=== PATIENT | female | born 1980 | race Caucasian/White ===

== ENCOUNTER 2022-03-19 09:15 | Observation (INO) | payer BC ==
--- NOTE | 2022-03-19 09:36 | ED ---
General Adult HPI - General Chief complaint: Neuro Symptoms/Deficit Stated complaint: facial numbness Time Seen by Provider: 03/19/22 09:22 Source: patient, EMS, RN notes reviewed Mode of arrival: EMS Limitations: no limitations - History of Present Illness Initial comments: Patient is a pleasant 41-year-old female presenting to the emergency department with concern for facial weakness. Patient deniedany symptoms when she woke. Around 8:00 her face felt funny. Patient looked in the mere and noticed drooping on the right side. Patient also has had paresthesias on the right side. Facial weakness has resolved. Patient believes it lasted around 45 minutes. No headache. Patient feels she may be slightly confused or fuzzy. No extremity weakness. No extremity paresthesia. Patient did have some odd symptoms after her covid injection however was told at that time which was back in October that it was just a reaction to the vaccination. - Related Data Allergies Allergy/AdvReac Type Severity Reaction Status Date / Time cephalexin [From Keflex] Allergy Nausea Verified 03/19/22 09:33 Review of Systems ROS Statement: Those systems with pertinent positive or pertinent negative responses have been documented in the HPI. ROS Other: All systems not noted in ROS Statement are negative. Constitutional: Denies: fever Eyes: Denies: eye pain ENT: Denies: ear pain Respiratory: Denies: cough Cardiovascular: Denies: chest pain Endocrine: Denies: fatigue Gastrointestinal: Denies: abdominal pain, vomiting Genitourinary: Denies: dysuria Musculoskeletal: Denies: back pain Skin: Denies: rash Neurological: Reports: as per HPI, weakness, paresthesias, confusion. Denies: headache, vertigo Past Medical History Past Medical History: Hypertension History of Any Multi-Drug Resistant Organisms: None Reported Past Surgical History: Hysterectomy Additional Past Surgical History / Comment(s): Breast reduction, colon resection, corneal transplant Past Psychological History: Anxiety, Depression Smoking Status: Former smoker Past Alcohol Use History: Occasional Past Drug Use History: None Reported General Exam Limitations: no limitations General appearance: alert, in no apparent distress Head exam: Present: normocephalic Eye exam: Present: normal appearance, PERRL, EOMI ENT exam: Present: normal oropharynx Neck exam: Present: normal inspection Respiratory exam: Present: normal lung sounds bilaterally Cardiovascular Exam: Present: regular rate, normal rhythm GI/Abdominal exam: Present: soft. Absent: tenderness Extremities exam: Present: normal inspection. Absent: pedal edema, calf tenderness Neurological exam: Present: alert, oriented X3, CN II-XII intact (Except patient states decreased sensation right side of face) Expanded Neurological exam: Present: protecting the airway Speech: Present: fluid speech Cranial nerves: EOM's Intact: Normal, Facial Sensation: Abnormal Right Sensory exam: Upper Extremity Light Touch: Normal, Lower Extremity Light Touch: Normal Motor strength exam: RUE: 5, LUE: 5, RLE: 5, LLE: 5 Eye Response: (4) open spontaneously Motor Response: (6) obeys commands Verbal Response: (5) oriented Psychiatric exam: Present: normal affect, normal mood Skin exam: Present: normal color Course Vital Signs 03/19/22 03/19/22 03/19/22 09:23 09:45 10:00 Temperature 97.1 F L Pulse Rate 63 58 L 62 Respiratory 18 18 18 Rate Blood Pressure 129/70 138/70 133/63 O2 Sat by Pulse 99 98 100 Oximetry 03/19/22 10:15 Temperature Pulse Rate 67 Respiratory 18 Rate Blood Pressure 135/76 O2 Sat by Pulse 99 Oximetry - Reevaluation(s) Reevaluation #1: 03/19/22 09:36 Patient felt to be not a candidate for TPA secondary to 1: Improving symptoms, 2: Low NIH. Risks are felt to outweigh any potential benefits. Code stroke was called. 03/19/22 10:02 Case was discussed earlier with Dr. Yusuf who agrees patient is not a TPA candidate. EKG Findings - EKG Comments: EKG Findings:: Sinus bradycardia 55. NM 171. QRS 100. QT 422. QTC 412. Normal axis. Low QRS voltage. No acute ST change. Medical Decision Making - Medical Decision Making Patient reevaluated and resting comfortably in bed. Symptoms unchanged. Patient updated on results and plan. Case discussed with Dr. Castanon, who will admit covering hospital call. - Lab Data Result diagrams: 03/19/22 09:36 03/19/22 09:36 Lab Results 03/19/22 03/19/22 03/19/22 Range/Units 09:36 09:36 09:36 WBC 8.0 (3.8-10.6) k/uL RBC 4.69 (3.80-5.40) m/uL Hgb 12.0 (11.4-16.0) gm/dL Hct 37.3 (34.0-46.0) % MCV 79.6 L (80.0-100.0) fL MCH 25.7 (25.0-35.0) pg MCHC 32.2 (31.0-37.0) g/dL RDW 15.8 H (11.5-15.5) % Plt Count 484 H (150-450) k/uL MPV 6.6 Neutrophils % 63 % Lymphocytes % 26 % Monocytes % 5 % Eosinophils % 3 % Basophils % 0 % Neutrophils # 5.0 (1.3-7.7) k/uL Lymphocytes # 2.1 (1.0-4.8) k/uL Monocytes # 0.4 (0-1.0) k/uL Eosinophils # 0.3 (0-0.7) k/uL Basophils # 0.0 (0-0.2) k/uL Hypochromasia Slight PT 10.4 (9.0-12.0) sec INR 1.0 (<1.2) APTT 27.8 (22.0-30.0) sec Sodium 141 (137-145) mmol/L Potassium 3.4 L (3.5-5.1) mmol/L Chloride 103 (98-107) mmol/L Carbon Dioxide 28 (22-30) mmol/L Anion Gap 10 mmol/L BUN 10 (7-17) mg/dL Creatinine 0.65 (0.52-1.04) mg/dL Est GFR (CKD-EPI)AfAm >90 (>60 ml/min/1.73 sqM) Est GFR (CKD-EPI)NonAf >90 (>60 ml/min/1.73 sqM) Glucose 96 (74-99) mg/dL POC Glucose (mg/dL) (75-99) mg/dL POC Glu Paint And Table Edger ID Calcium 9.0 (8.4-10.2) mg/dL Total Bilirubin 0.5 (0.2-1.3) mg/dL AST 19 (14-36) U/L ALT 17 (4-34) U/L Alkaline Phosphatase 94 (38-126) U/L Troponin I (0.000-0.034) ng/mL Total Protein 7.6 (6.3-8.2) g/dL Albumin 3.9 (3.5-5.0) g/dL 03/19/22 03/19/22 Range/Units 09:36 09:36 WBC (3.8-10.6) k/uL RBC (3.80-5.40) m/uL Hgb (11.4-16.0) gm/dL Hct (34.0-46.0) % MCV (80.0-100.0) fL MCH (25.0-35.0) pg MCHC (31.0-37.0) g/dL RDW (11.5-15.5) % Plt Count (150-450) k/uL MPV Neutrophils % % Lymphocytes % % Monocytes % % Eosinophils % % Basophils % % Neutrophils # (1.3-7.7) k/uL Lymphocytes # (1.0-4.8) k/uL Monocytes # (0-1.0) k/uL Eosinophils # (0-0.7) k/uL Basophils # (0-0.2) k/uL Hypochromasia PT (9.0-12.0) sec INR (<1.2) APTT (22.0-30.0) sec Sodium (137-145) mmol/L Potassium (3.5-5.1) mmol/L Chloride (98-107) mmol/L Carbon Dioxide (22-30) mmol/L Anion Gap mmol/L BUN (7-17) mg/dL Creatinine (0.52-1.04) mg/dL Est GFR (CKD-EPI)AfAm (>60 ml/min/1.73 sqM) Est GFR (CKD-EPI)NonAf (>60 ml/min/1.73 sqM) Glucose (74-99) mg/dL POC Glucose (mg/dL) 87 (75-99) mg/dL POC Glu Paint And Table Edger ID Perry Lazo Calcium (8.4-10.2) mg/dL Total Bilirubin (0.2-1.3) mg/dL AST (14-36) U/L ALT (4-34) U/L Alkaline Phosphatase (38-126) U/L Troponin I <0.012 (0.000-0.034) ng/mL Total Protein (6.3-8.2) g/dL Albumin (3.5-5.0) g/dL - Radiology Data Radiology results: report reviewed (Computed tomography scan of the brain shows no acute process. Brain volume loss changes more than expected for patient's age. CT angios shows no significant abnormality. Incidental findings.), image reviewed (Two-view chest x-ray shows no acute process.) Disposition Clinical Impression: Cerebrovascular accident (CVA) Disposition: ADMITTED IP TO THIS HOSP Is patient prescribed a controlled substance at d/c from ED?: No Referrals: Nonstaff,Physician [Primary Care Provider] - 1-2 days Decision Time: 10:56
[2022-03-19 09:46] LABS: Glucose,Whole Blood 87 mg/dL (75-99)
[2022-03-19 09:50] LABS: Basophils % (A) 0 %; Eosinophils # (A) 0.3 k/uL (0-0.7); Eosinophils % (A) 3 %; HCT 37.3 % (34.0-46.0); Hypochromasia Slight; Lymphocytes # (A) 2.1 k/uL (1.0-4.8); Lymphocytes % (A) 26 %; MCH 25.7 pg (25.0-35.0); MCHC 32.2 g/dL (31.0-37.0); MCV 79.6 fL (80.0-100.0); Mean Platelet Volume 6.6; Monocytes # (A) 0.4 k/uL (0-1.0); Monocytes % (A) 5 %; Neutrophils % (A) 63 %; Platelet Count 484 k/uL (150-450); RBC 4.69 m/uL (3.80-5.40); RDW 15.8 % (11.5-15.5)
[2022-03-19 10:00] LABS: Partial Thromboplastin Time 27.8 sec (22.0-30.0); Prothrombin Time 10.4 sec (9.0-12.0)
--- NOTE | 2022-03-19 10:03 | CT ---
EXAMINATION TYPE: CT brain wo con for TPA DATE OF EXAM: 03/19/2022 COMPARISON: None available HISTORY: Neuro [id number] CT DLP: 1085.8 mGycm Automated exposure control for dose reduction was used. TECHNIQUE: CT scan of the brain is performed without IV contrast administration. FINDINGS: Ballooning of the sella turcica. Brain volume loss changes mainly involving the frontal lobes, more t maldonado expected for the patient's age. No acute intracranial hemorrhage. No gross acute cortical infarct . No midline shift, herniation or ventriculomegaly. Unremarkable basal cisterns and CP angles. No gross space-occupying lesion, vasogenic edema or mass effect. Unremarkable orbits. Clear visualized paranasal sinuses and mastoid air cells. Unremarkable calvarial bones. IMPRESSION: No acute intracranial hemorrhage or gross acute cortical infarct. No gross space-occupying lesion by this nonenhanced CT scan. Brain volume loss changes more than expected for the patient's age as described above. Further MRI as sessment can be considered if clinically required.
[2022-03-19 10:04] LABS: ALT 17 U/L (4-34); AST 19 U/L (14-36); African American GFR (CKD) >90 (>60 ml/min/1.73 sqM); Albumin 3.9 g/dL (3.5-5.0); Alkaline Phosphatase 94 U/L (38-126); Anion Gap 10 mmol/L; Blood Urea Nitrogen 10 mg/dL (7-17); Carbon Dioxide 28 mmol/L (22-30); Chloride 103 mmol/L (98-107); Glucose 96 mg/dL (74-99); Non-African American GFR(CKD) >90 (>60 ml/min/1.73 sqM); Potassium 3.4 mmol/L (3.5-5.1); Sodium 141 mmol/L (137-145); Total Bilirubin 0.5 mg/dL (0.2-1.3); Total Protein 7.6 g/dL (6.3-8.2)
--- NOTE | 2022-03-19 10:31 | XR ---
EXAMINATION TYPE: XR chest 2V DATE OF EXAM: 03/19/2022 COMPARISON: NONE HISTORY: Chest pain TECHNIQUE: Frontal and lateral views of the chest are obtained. FINDINGS: There is no focal air space opacity. No evidence for pneumothorax. No pleural effusion. The cardiac silhouette size is within normal limits. The osseous structures are grossly intact. IMPRESSION: 1. No acute cardiopulmonary process.
--- NOTE | 2022-03-19 10:40 | CT ---
EXAMINATION TYPE: CT angio head neck DATE OF EXAM: 03/19/2022 HISTORY: Right sided facial droop and headache. COMPARISON: Nonenhanced CT brain performed earlier same day CT DLP: 786 mGycm. Automated Exposure Control for Dose Reduction was Utilized. TECHNIQUE: CTA scan of the neck is performed with IV Contrast, patient injected with 65 mL of Isovue 370, axial images are obtained, coronal and sagittal reformatted images are reviewed. 3D reconstruct ed images are created on an independent workstation and reviewed. FINDINGS: Carotid/Vascular Structures: Normal caliber and enhancement of the neck arteries and intracranial art eries without significant stenosis, occlusion, dissection, aneurysm or AV malformation. Patent major intracranial venous sinuses. Other: No intracranial abnormal enhancement. Slightly prominent nasopharyngeal soft tissue, please co rrelate clinically. Degenerative changes at C4-5 and C5-6 levels. IMPRESSION: No significant neck or intracranial arterial abnormality identified. Incidental findings as described above.
[2022-03-19] MEDS ORDERED: METOCLOPRAMIDE 5 MG/ML 2 ML VIAL IVP STA (10:57)
[2022-03-19] MEDS ORDERED: ASPIRIN 325 MG TAB PO STA (10:57)
[2022-03-19] MEDS: SODIUM CHLORIDE 0.9% 1,000 ML IV SCH ×2 (11:27→22:03)
[2022-03-19] MEDS ORDERED: ALBUTEROL NEBULIZED 2.5 MG/3 ML INHALATION PRN (12:25)
--- NOTE | 2022-03-19 13:38 | P.CNNES ---
History of Present Illness Consult date: 03/19/22 Requesting physician: Maximo Lopez Reason for Consult: CVA History of Present Illness: Patient is a 41-year-old right-handed female came to the hospital by ambulance this morning at 9:15 AM, for evaluation of right-sided facial brachial numbness and tingling. Patient states that she woke up at 7:15 AM and was feeling fine. At 8 AM she went with her friend to work, when while in the car she felt her face felt funny, her mouth was drooping on the right side. Shortly after she noticed numbness and tingling of the right cheek that extended to rest of the face on the right side, shoulder to the right arm. The symptoms mostly lasted for 1-1-1/2 hours. As per EMS flow sheet when they arrived, found patient in her workplace, stated that her right side of her face felt numb. This started on her way to work. She noticed some facial droop right side when looking in the mirror. She also stated that she just does not feel right. Staff took her blood pressure was 161/93. When the EMS examined, she has symmetrical facial expressions, equal upper and lower extremities. She mentioned that her face still felt numb and was having a hard time coming up with words and feels weird, something is not right. Patient has mentioned that she has periodic headaches and new onset hypertension for which she is started on lisinopril. She had taken her medication in the morning prior to going to work. EKG showed normal sinus rhythm. Blood pressure when checked by EMS was 150/86, pulse rate 80, respiration 14 saturation 100%. Patient was evaluated in the ER. She was considered not a candidate for TPA because of low NIH stroke scale and improving symptoms. Stroke code was initiated in the ED staff discuss case with Dr. Inman and she was not a candidate for TPA. Computed tomography scan of head showed no acute process. There is increased amount of cerebral atrophy as compared to patient's age. On my personal review on the computed tomography scan, there is evidence of subdural hygromas bilaterally mainly involving the frontal and superior head region. CTA of head and neck is normal. chest x-ray is normal. EKG with normal sinus rhythm, sinus bradycardia. Patient at home takes aspirin 81 mg daily, lisinopril and Cymbalta 60 mg daily. she has been on baby aspirin for over 10 years, as she has positive MTHFR. Patient has history of hypertension since December 2021. She has smoked half pac k per day off and on for 15 years, quit in December 23 2 after she suffered from Covid. Patient states that since her Covid, she feels confused at times. This morning when EMS arrived, she could not recall name of her PCP. patient denies any recent or remote history of head injury. Patient still feels some tingling of the right facial region and droopiness feeling of the right lip, although it is actually normal. Denies any history of migraines. Patient says that her mother of PE at age 58. Patient drinks alcohol occasionally. Review of Systems All 14 point of review systems reviewed are unremarkable except as mentioned above in the HPI. Past Medical History Past Medical History: Asthma, Blood Disorder, Eye Disorder, GERD/Reflux, Hypertension, Pneumonia Additional Past Medical History / Comment(s): MTHFR blood disorder, covid pneumonia 12/2021 hospitalized at [facility], bradycardia, colon rupture/surgery, keratconus, History of Any Multi-Drug Resistant Organisms: None Reported Past Surgical History: Bowel Resection, Breast Surgery, Hysterectomy Additional Past Surgical History / Comment(s): Breast reduction, colon resection, R eye corneal transplant Past Anesthesia/Blood Transfusion Reactions: Postoperative Nausea & Vomiting (PONV) Additional Past Anesthesia/Blood Transfusion Reaction / Comment(s): "I was told my heart stopped during surgery once." Past Psychological History: Anxiety, Depression Additional Psychological History / Comment(s): Pt resides with her father. 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. She is independent. Smoking Status: Former smoker Past Alcohol Use History: Occasional Additional Past Alcohol Use History / Comment(s): Pt started smoking in 2001 and was an on and off smoker then quit smoking cigarettes completely December 2021 but will occasionally take a couple puffs off an E cigarette. Past Drug Use History: None Reported - Past Family History Father Family Medical History: Diabetes Mellitus, Hypertension Additional Family Medical History / Comment(s): Father is alive Mother Family Medical History: Pulmonary Embolus Additional Family Medical History / Comment(s): Mother of a PE Medications and Allergies Home Medications Medication Instructions Recorded Confirmed Type Albuterol Sulfate [Proair Hfa] 2 puff INHALATION RT-Q4H PRN 03/19/22 03/19/22 History Aspirin EC [Ecotrin Low Dose] 81 mg PO DAILY 03/19/22 03/19/22 History DULoxetine HCL [Cymbalta] 60 mg PO DAILY 03/19/22 03/19/22 History Omeprazole 40 mg PO DAILY 03/19/22 03/19/22 History lisinopriL [Zestril] 20 mg PO DAILY 03/19/22 03/19/22 History Allergies Allergy/AdvReac Type Severity Reaction Status Date / Time cephalexin [From Keflex] AdvReac Nausea Verified 03/19/22 11:04 Physical Examination - Vital Signs Vital Signs: Vital Signs Temp Pulse Resp BP Pulse Ox 03/19/22 10:15 67 18 135/76 99 03/19/22 10:00 62 18 133/63 100 03/19/22 09:45 58 L 18 138/70 98 03/19/22 09:23 97.1 F L 63 18 129/70 99 Intake and Output 03/18/22 03/19/22 03/19/22 22:59 06:59 14:59 Other: Weight 136.078 kg Patient is a young female, in no acute distress. Patient is alert awake oriented to time place and person. Speech and language functions are normal. Attention, concentration and fund of knowledge is adequat e. There is no aphasia or dysarthria. On cranial examination, pupils are equal, round and reacting to light, visual nobles are full on confrontation, with no neglect on double simultaneous stimulation. Her extraocular muscles are intact with no nystagmus. Face is symmetric, tongue protrudes to the midline. Palatal elevation and sensation normal, hearing and shoulder shrug normal, facial sensation normal. Shoulder shrug normal. On muscle strength testing, there is no pronator drift and the strength is normal in arms and legs distally and proximally. Deep tendon reflexes are symmetric, 2+ all over and plantar equivocal on the right, probably down on the left. Sensory to touch is equal with no neglect. Cerebellar function showed no ataxia for [id number] testing. No dysdiadochokinesia. Tone and bulk of muscles normal. Gait deferred. On general examination, there is no carotid bruit or murmur, S1-S2 audible. Abdomen is soft nontender. Bowel sounds present, no organomegaly. Chest is clear. Peripheral pulses are present. No edema. Results - Laboratory Findings CBC and BMP: 03/19/22 09:36 03/19/22 09:36 Abnormal Lab Findings: Abnormal Labs 03/19/22 03/19/22 09:36 09:36 MCV 79.6 L RDW 15.8 H Plt Count 484 H Potassium 3.4 L Assessment and Plan Assessment: * Probable TIA manifesting with transient right facial and brachial numbness and tingling. Symptoms mostly lasted for 1-1/2 hours, but she still feels some paresthesias over the right facial region. Rule out CVA. * Abnormal CT head, with evidence of subdural hygromas bilaterally, unclear cause. No history of head trauma. * Reported history of positive MTHFR * Hypertension * Obesity Plan: * We will check MRI of the brain with and without contrast to evaluate for CVA, rule out subdural hematoma. * 2-D echo with bubble study to rule out PFO. * Fasting a.m. lipid panel, hemoglobin A1c * Continue aspirin for now. * Telemetry monitoring. * Neurology will follow. Thank you for the consult.
[2022-03-19] MEDS: ACETAMINOPHEN TAB 500 MG TAB PO PRN ×2 (16:00→21:28)
--- NOTE | 2022-03-19 18:39 | MR ---
EXAMINATION TYPE: MR brain wo/w con DATE OF EXAM: 03/19/2022 COMPARISON: CT brain 03/19/2022 HISTORY: 14 ml TECHNIQUE: Multiplanar, multisequence images of the brain and brainstem is performed without and with IV contras t, utilizing Subdural hygroma, possible TIA, rule out SDH mL intravenous Gadavist . FINDINGS: Diffusion weighted images demonstrate no evidence of a recent infarct or other diffusion ab normality. There is no change in extra-axial fluid collection collection is or significant white mat ter signal abnormality, there is a focus of hyperintensity in the right frontal lobe on axial image 2 4 within the subcortical white matter measuring 6 to 7 mm on T2 and inversion recovery sequences. Th e ventricular system and cisternal spaces are normal in size and appearance. The brain volume is sta ble, greater than expected for patient's age. Midline structures demonstrate partially empty sella as on prior, cerebellar tonsils are in close pro ximity to the foramen magnum verge. The craniocervical junction appears within normal limits. Post contrast images demonstrate no abnormal enhancement. The dural venous sinuses appear patent. The visu alized sinuses are clear and the globes are intact. IMPRESSION: No acute abnormality. Nonspecific cortical volume loss, focus of hyperintensity within th e subcortical white matter. Additional findings above.
--- NOTE | 2022-03-19 18:59 | HP ---
HISTORY AND PHYSICAL This 41-year-old white female came to the hospital with right-sided facial weakness and right arm weakness. These symptoms occurred when she was driving to work. She did not have them any time in the past. She has never had these before. Past medical history . She takes aspirin at home and hypertension medicine. She has no idea what her blood pressure has been running at home. She gained 30 pounds since she had COVID 3 months ago. She has been chronically dizzy, short of breath with exercise. ALLERGIES TO KEFLEX. Fourteen-point review of systems otherwise negative. No right leg weakness at all or numbness. Otherwise negative. Some mild confusion, weakness, paresthesias. No headache or vertigo in the past. Past medical history is hypertension and weight gain, COVID 3 months ago. Surgeries are hysterectomy, breast reduction, colon resection, corneal transplant, anxiety, depression. Smokes one pack a day. No alcohol. On physical examination, vital signs were reviewed. Cardiovascular S1, S2. No murmurs. Lungs clear. GI distended. Endocrine: BMI is over 40. Psych: Giving appropriate answers. No facial droop seen on cranial nerve exam. Appears to be intact with some mild decreased sensation in the face on the right side. Fluent speech. No slurred speech. Extremities . She is alert and oriented x3. Fair mood and affect. Normal skin color. Blood pressure is 120s to 130s over 60s to 70s, temperature 97.1, pulse 60s, respiratory rate 16 to 18, O2 98 to 100. Neurology saw her, did not order tPA due to her symptoms were improved, low NIH. She is ordered for an MRI of the brain after CTA was negative and CT of the brain essentially questionable for some hygromas according to Neurology. Her potassium is little bit low at 3.4. White count is 8, hemoglobin is 12. BUN is 10, creatinine is 0.65. Condition stable. Prognosis guarded. ASSESSMENT: Probable cerebrovascular accident versus transient ischemic attack, which is improved. We are waiting for MRI of the brain and further neurologic workup. MMODL / IJN: [id number] /
[2022-03-19] MEDS: LORazepam 2 MG/ML INJ IV PRN (22:02)
[2022-03-20 03:00] LABS: % Iron Saturation 11.49 (12.00-45.00)
[2022-03-20] MEDS: SODIUM CHLORIDE 0.9% 1,000 ML IV SCH ×2 (06:34→19:01)
[2022-03-20] MEDS: PANTOPRAZOLE 40 MG TABLET PO SCH (06:34)
[2022-03-20] MEDS: ASPIRIN 81 MG PO SCH (08:54)
[2022-03-20] MEDS: lisinopriL 20 MG TAB PO SCH (08:54)
[2022-03-20] MEDS: DULoxetine HCL 60 MG CAPSULE.DR PO SCH (08:54)
[2022-03-20] MEDS ORDERED: ASPIRIN 325 MG TAB PO SCH (09:00)
[2022-03-20 09:23] LABS: LDL Cholesterol,Calculated 107.4 mg/dL (0.0-131.0)
[2022-03-20] MEDS: LORazepam 2 MG/ML INJ IV PRN ×2 (10:13→20:01)
[2022-03-20] MEDS: ACETAMINOPHEN TAB 500 MG TAB PO PRN (10:17)
[2022-03-20] MEDS: BUTALB/APAP/CAFF 50-325-40MG TAB PO PRN (12:16)
--- NOTE | 2022-03-20 12:18 | P.PN ---
Subjective Progress Note Date: 03/20/22 Patient was seen for a follow-up. Patient states she is feeling better, but still having some different sensation over the right cheek region. Denies any visual symptoms. Patient has been diagnosed with keratoconus disease, but nothing new visual symptoms. Denies dizziness. She says that since she amador ffered from [place] in December 2021, she has been having headaches which are migratory headaches, which she attributed to ALLERGIES. However since yesterday the headache has got worse, which she describes as a pressure headache, mainly the frontal region which is rated 7-8/10 yesterday but today is 5-6/10. When it gets worse, she does feel nauseous, light and noise sensitive, but no vomiting. Objective - Vital Signs Vital signs: Vital Signs Temp 97.4 F L 03/20/22 11:17 Pulse 69 03/20/22 11:17 Resp 18 03/20/22 11:17 BP 135/62 03/20/22 11:17 Pulse Ox 96 03/20/22 11:17 Intake & Output 03/19/22 03/20/22 03/20/22 18:59 06:59 18:59 Intake Total 360 700 Balance 360 700 Weight 136.078 kg Intake: IV 700 Sodium Chloride 0.9% 1, 700 000 ml @ 100 mls/hr IV . Q10H JAKE Rx#:[id number] Oral 360 Other: Voiding Method Toilet Toilet # Voids 1 - Exam Patient's mental status, speech and language functions are normal. No aphasia. No dysarthria. Cranial nerves II through XII are normal. Visual nobles are full, extraocular muscles are intact. Pupils are equal, round and reacting. Face is symmetric and tongue protrudes the midline. On muscle strength testing there is no drift and the strength is normal in arms and legs. No ataxia, sensations equal with no neglect. - Labs CBC & Chem 7: 03/20/22 15:08 03/20/22 15:08 Labs: Abnormal Lab Results - Last 24 Hours (Table) 03/19/22 Range/Units 15:08 Iron 42 L (50-170) ug/dL % Saturation 11.49 L (12.00-45.00) Assessment and Plan Assessment: * Questionable TIA manifesting with transient right facial and brachial numbness and tingling. Symptoms mostly lasted for 1-1/2 hours, but she still feels some paresthesias over the right facial region. No evidence of acute CVA on MRI brain. * Abnormal CT and MRI head, with evidence of subdural hygromas bilaterally, unclear cause. No history of head trauma. * Intermittent fluctuating headaches since patient suffered from Covid in December 2021. * Reported history of positive MTHFR * Hypertension * Hyperlipidemia * Obesity Plan: * MRI of the brain with and without contrast revealed 1 small nonspecific white matter lesion involving the subcortical frontal white matter on the right side. No evidence of an acute stroke. Continued presence of prominent CSF in the superior portion of the frontal parietal region, suggestive of subdural hygroma. Evidence of partial empty sella. Presence of cerebellar tonsils on the words of foramen magnum without herniation. No central hydrocephalus. I personally reviewed MRI and agree with the findings. Also discussed with Dr. Barrera, neuroradiologist. * Recommend patient follow up with a neurosurgeon as an outpatient for hygroma. * Patient will be given Fioricet as needed for headaches. * CTA of head and neck showed no significant stenosis. * 2-D echo with bubble study to rule out PFO, completed still pending. * Fasting a.m. lipid panel hemoglobin 185, LDL 107, HDL 51 triglycerides 131. We will start Lipitor 20 mg daily. * Hemoglobin A1c, Lyme titer pending. We will also check B12, TSH 2.1. JHONY neg ative. * Continue aspirin for now. * Telemetry monitoring Addendum: Patient has made an appointment with Dr. Lofton neurosurgery for subdural hygroma on 03/26/2022 at 2 PM. Patient is having headaches for which she will try Fioricet. Observe overnight. Await test results as above. If remains stable overnight, may discharge home tomorrow. Discussed with primary physician in detail.
[2022-03-20 15:20] LABS: HCT 36.1 % (34.0-46.0); HGB 11.2 gm/dL (11.4-16.0); Hypochromasia Slight; MCH 25.5 pg (25.0-35.0); MCHC 31.1 g/dL (31.0-37.0); Mean Platelet Volume 6.7; Platelet Count 461 k/uL (150-450); RBC 4.41 m/uL (3.80-5.40); RDW 15.4 % (11.5-15.5); WBC 8.6 k/uL (3.8-10.6)
[2022-03-20 15:29] LABS: African American GFR (CKD) >90 (>60 ml/min/1.73 sqM); Anion Gap 5 mmol/L; Blood Urea Nitrogen 9 mg/dL (7-17); Calcium 8.7 mg/dL (8.4-10.2); Carbon Dioxide 30 mmol/L (22-30); Chloride 106 mmol/L (98-107); Glucose 100 mg/dL (74-99); Non-African American GFR(CKD) >90 (>60 ml/min/1.73 sqM); Potassium 3.8 mmol/L (3.5-5.1); Sodium 141 mmol/L (137-145)
[2022-03-20] MEDS: traMADol 50 MG TAB PO SCH (20:01)
[2022-03-20] MEDS: ATORVASTATIN 20 MG TAB PO SCH (20:01)
[2022-03-21] MEDS: BUTALB/APAP/CAFF 50-325-40MG TAB PO PRN ×4 (01:42→21:40)
[2022-03-21] MEDS: SODIUM CHLORIDE 0.9% 1,000 ML IV SCH ×2 (01:42→16:47)
[2022-03-21] MEDS: LORazepam 2 MG/ML INJ IV PRN ×4 (01:43→21:41)
[2022-03-21] MEDS: PANTOPRAZOLE 40 MG TABLET PO SCH (06:43)
[2022-03-21] MEDS: lisinopriL 20 MG TAB PO SCH (08:05)
[2022-03-21] MEDS: traMADol 50 MG TAB PO SCH ×4 (08:05→21:39)
[2022-03-21] MEDS: ASPIRIN 81 MG PO SCH (08:05)
[2022-03-21] MEDS: DULoxetine HCL 60 MG CAPSULE.DR PO SCH (08:06)
[2022-03-21 09:27] LABS: ALT 16 U/L (4-34); AST 19 U/L (14-36); African American GFR (CKD) >90 (>60 ml/min/1.73 sqM); Albumin 3.2 g/dL (3.5-5.0); Alkaline Phosphatase 79 U/L (38-126); Anion Gap 4 mmol/L; Blood Urea Nitrogen 7 mg/dL (7-17); Calcium 8.6 mg/dL (8.4-10.2); Carbon Dioxide 26 mmol/L (22-30); Chloride 110 mmol/L (98-107); Glucose 82 mg/dL (74-99); Non-African American GFR(CKD) >90 (>60 ml/min/1.73 sqM); Potassium 3.9 mmol/L (3.5-5.1); Sodium 140 mmol/L (137-145); Total Bilirubin 0.5 mg/dL (0.2-1.3); Total Protein 6.3 g/dL (6.3-8.2)
--- NOTE | 2022-03-21 10:56 | ECHOF ---
Referral Reason:Thrombus MEASUREMENTS -------- HEIGHT: 170.2 cm WEIGHT: 136.1 kg BP: 135/76 RVIDd: 3.3 cm (< 3.3) IVSd: 1.3 cm (0.6 - 1.1) LVIDd: 5.5 cm (3.9 - 5.3) LVPWd: 1.2 cm (0.6 - 1.1) IVSs: 1.9 cm LVIDs: 3.2 cm LVPWs: 2.0 cm LA Diam: 3.9 cm (2.7 - 3.8) LAESV Index (A-L): 20.55 ml/m Ao Diam: 3.7 cm (2.0 - 3.7) AV Cusp: 2.5 cm (1.5 - 2.6) MV EXCURSION: 21.388 mm (> 18.000) MV EF SLOPE: 95 mm/s (70 - 150) EPSS: 0.6 cm MV E Hubert: 1.16 m/s MV DecT: 242 ms MV A Hubert: 0.80 m/s MV E/A Ratio: 1.45 FINDINGS -------- Sinus rhythm. This was a technically adequate study. The left ventricle is mildly dilated. There is mild concentric left ventricular hypertrophy. Over all left ventricular systolic function is low-normal with, an EF between 50 - 55 %. The right ventricle is mildly enlarged. Normal LA size by volume 22+/-6 ml/m2. The right atrium is normal in size. 3.0mg of Lumason was utilized for enhancement of images The aortic valve is trileaflet, and appears structurally normal. No aortic stenosis or regurgitation. The mitral valve is normal. The tricuspid valve appears structurally normal. Unable to estimate RVSP due to inadequate TR jet s pectral doppler profile. The pulmonic valve was not well visualized. The aortic root size is normal. Normal inferior vena cava with normal inspiratory collapse consistent with estimated right atrial pre ssure of 5 mmHg. There is no pericardial effusion. CONCLUSIONS -------- 1. The left ventricle is mildly dilated. 2. There is mild concentric left ventricular hypertrophy. 3. Overall left ventricular systolic function is low-normal with, an EF between 50 - 55 %. 4. The right ventricle is mildly enlarged. 5. 3.0mg of Lumason was utilized for enhancement of images 6. There is no pericardial effusion. PUBLICATION DISTRIBUTOR: Sandie Vance RDCS
--- NOTE | 2022-03-21 18:17 | PN ---
PROGRESS NOTE The patient had a echo and a brain MRI. Brain MRI shows some abnormalities, but no acute strokes. Echocardiogram was done, showed ejection fraction 50 to 55%. Just mildly decreased. Neurology talked to them yesterday and say she can probably be discharged home to follow up as an outpatient. Blood pressure 130s/60s, pulse 60s, respiratory 16 to 18, temp 97.4, O2 96. Cardiovascular S1-S2. Lungs transmitted upper airway sounds. Hematology: Negative Homans. Psych: Fair mood and affect. ASSESSMENT AND PLAN: 1. Questionable transient ischemic attack unsure. MRI showed no CVAs. 2. Possible subdural hygromas bilaterally, unclear cause, no history of head trauma. 3. Fluctuating headaches since COVID. 4. Possible positive MTHFR. 5. Hypertension. 6. Dyslipidemia. 7. Obesity. 8. Nonspecific white matter lesions in the brain in the subcortical frontal white matter. 9. Prominent CSF fluid in the frontal parietal region suggestive of subdural hygroma, partial sella syndrome. No central hydrocephalus. Going to seen neurosurgeon as an outpatient. 10.Fioricet p.r.n. for headaches. 11.CTA and echo essentially normal but maybe a slightly decreased ejection fraction, but they did not do a study. 12.TSH is normal. 13.JHONY is negative. 14.Continue on aspirin. 15.She sees Dr. Riggs for subdural hygroma on Saturday, 03/26. 16.Continue with Fioricet. Possible discharge home. This patient appears to be stable at this time. MMODL / IJN: [id number] /
--- NOTE | 2022-03-21 18:20 | P.PN ---
Subjective Progress Note Date: 03/21/22 03/21/2022: Patient's sister was also present today. Patient still complaining of headache 5-7/10. She does not drink excessive caffeine. Occasional pops. No new focal symptoms. No problem with the vision. No double vision. Patient's telemetry monitoring showing sinus rhythm between 40s to 100s with some PVCs and PACs. 03/20/2022: Patient was seen for a follow-up. Patient's sister was present t gabriela. Patient states she is feeling better, but still having some different sensation over the right cheek region. Denies any visual symptoms. Patient has been diagnosed with keratoconus disease, but nothing new visual symptoms. Denies dizziness. She says that since she suffered from Covid in December 2021, she has been having headaches which are migratory headaches, which she attributed to ALLERGIES. However since yesterday the headache has got worse, which she describes as a pressure headache, mainly the frontal region which is rated 7-8/10 yesterday but today is 5-6/10. When it gets worse, she does feel nauseous, light and noise sensitive, but no vomiting. Objective - Vital Signs Vital signs: Vital Signs Temp 97.9 F 03/21/22 08:00 Pulse 74 03/21/22 11:50 Resp 16 03/21/22 11:50 BP 123/58 03/21/22 11:50 Pulse Ox 96 03/21/22 11:50 Intake & Output 03/20/22 03/21/22 03/21/22 18:59 06:59 18:59 Intake Total 480 480 Balance 480 480 Intake: Oral 480 480 Other: Voiding Method Toilet Toilet # Voids 2 0 - Exam Patient's mental status, speech and language functions are normal. No aphasia. No dysarthria. Cranial nerves II through XII are normal. Visual nobles are full, extraocular muscles are intact. Pupils are equal, round and reacting. Face is symmetric and tongue protrudes the midline. On muscle strength testing there is no drift and the strength is normal in arms and legs. No ataxia, sensations equal with no neglect. Patient walks fairly steady, although was walking slow. - Labs CBC & Chem 7: 03/20/22 15:08 03/21/22 08:32 Labs: Abnormal Lab Results - Last 24 Hours (Table) 03/20/22 03/20/22 03/21/22 Range/Units 15:08 15:08 08:32 Hgb 11.2 L (11.4-16.0) gm/dL Plt Count 461 H (150-450) k/uL Chloride 110 H (98-107) mmol/L Glucose 100 H (74-99) mg/dL Albumin 3.2 L (3.5-5.0) g/dL Assessment and Plan Assessment: * Questionable TIA manifesting with transient right facial and brachial numbness and tingling. Symptoms mostly lasted for 1-1/2 hours. No evidence of acute CVA on MRI brain. * Abnormal CT and MRI head, with evidence of subdural hygromas bilaterally, unclear cause. No history of head trauma. * Intermittent fluctuating headaches since patient suffered from Covid in December 2021. The headaches have recently become worse over since just prior to arrival. * Reported history of positive MTHFR * Hypertension * Hyperlipidemia * Obesity Plan: * Patient continues to have headache involving bifrontal region. Patient's headaches have not resolved with Fioricet. No fever or chills. White cells are normal. No signs of infection. * MRI of the brain with and without contrast revealed 1 small nonspecific white matter lesion involving the subcortical frontal white matter on the right side. No evidence of an acute stroke. Continued presence of prominent CSF in the superior portion of the frontal parietal region, suggestive of subdural hygroma. Evidence of partial empty sella. Cerebellar tonsils are in close proximity to the verge of foramen magnum without herniation. No central hydrocephalus. I personally reviewed MRI and agree with the findings. Also discussed with Dr. Barrera, neuroradiologist. * I further discussed case with Dr. Horton, who felt patient would be safe to follow-up with a neurosurgeon outpatient. He referred me to , neurosurgeon. I reviewed her MRI and CT reports with Dr. Goff, and she wanted to see the patient as an outpatient within a week. No need for transfer as inpatient. * Patient states she has already made an appointment with the neurosurgeon Dr. Hutchinson for Saturday next week. She has an appointment with Dr. Lofton, a neurologist on 03/26/2022 at 2 PM for a second opinion. * We will check MRV of the head to rule out any venous sinus thrombosis. Patient does not take any hormones. She does have MTHFR. * CTA of head and neck showed no significant stenosis. * 2-D echo revealed left ventricle is mildly dilated. Mild concentric LVH, left ventricle systolic function is low normal with an EF between 50-55%. Right ventricle was mildly enlarged. Bubble study was not performed because the images were not the best quality. Cardiology to see the patient for abnormal echo. Discussed with Dr. Castanon in detail. * Fasting a.m. lipid panel hemoglobin 185, LDL 107, HDL 51 triglycerides 131. We will start Lipitor 20 mg daily. * Hemoglobin A1c 5.5, Lyme titer pending. Await B12, TSH 2.1. JHONY negative. * Increase aspirin dose to 325 mg daily. I would avoid adding Plavix because of subdural hygromas. * Dr. Anup Orozco Will resume neurology service in the morning. Time with Patient: Greater than 30 (Spent over 25 minutes in discussing case with 3 different physicians.)
[2022-03-21] MEDS: ATORVASTATIN 20 MG TAB PO SCH (21:39)
[2022-03-21] MEDS ORDERED: ZOLPIDEM 5 MG TAB PO PRN (22:34)
[2022-03-22] MEDS: SODIUM CHLORIDE 0.9% 1,000 ML IV SCH ×2 (01:01→10:44)
[2022-03-22] MEDS: BUTALB/APAP/CAFF 50-325-40MG TAB PO PRN ×3 (05:55→18:15)
[2022-03-22] MEDS: PANTOPRAZOLE 40 MG TABLET PO SCH (05:55)
[2022-03-22] MEDS: LORazepam 2 MG/ML INJ IV PRN ×2 (05:56→12:20)
[2022-03-22] MEDS: DULoxetine HCL 60 MG CAPSULE.DR PO SCH (08:55)
[2022-03-22] MEDS: lisinopriL 20 MG TAB PO SCH (08:55)
[2022-03-22] MEDS: traMADol 50 MG TAB PO SCH ×3 (08:56→18:15)
[2022-03-22] MEDS ORDERED: ASPIRIN 325 MG TAB PO SCH (09:00)
--- NOTE | 2022-03-22 11:24 | CA ---
Transthoracic Echo Report Name: Shyann Guido Age: 41 Gender: F : 1980 Exam Date: 03/22/2022 10:18 Exam Location: [facility] Ht (in): 67 Wt (lb): 300 Ordering Physician: Kathya Shen Attending/Referring Phys: [id number], Ac Timber Faller Sandie Vance RDCS Procedure CPT: Indications: possible TIA Cardiac Hx: Technical Quality: Fair Contrast 1: Agitated Saline Total Dose (mL): 10 Contrast 2: Agitated Saline Total Dose (mL): 10 MEASUREMENTS (Male / Female) Normal Values FINDINGS Left Ventricle Left ventricular ejection fraction is estimated at 55-60 %. Right Ventricle Right Atrium Negative agitated saline bubble study for right to left shunt. Left Atrium Mitral Valve Aortic Valve Tricuspid Valve Pulmonic Valve Pericardium No pericardial effusion. Aorta CONCLUSIONS Negative bubble study Previewed by: Dr. Rosanna Stevenson MD (Electronically Signed) Final Date: 22 March 2022 11:23
--- NOTE | 2022-03-22 12:36 | MR ---
Magnetic resonance venography of the head HISTORY: Headaches, TIA and empty sella, abnormal brain MRI [id number] imaging obtained through the brain, three-dimensional postprocessing was performed Correlation to MR brain 03/19/2022, CT angiogram of the head 03/19/2022 The superior sagittal sinus, straight sinus, the vein of Lenny, transverse sinus, sigmoid sinus, inte rnal jugular and internal cerebral veins are patent. Cortical veins are patent. No filling defect to suggest thrombosis. Inferior sagittal sinus thought to be absent. Impression: No evident intracranial venous thrombosis
--- NOTE | 2022-03-22 12:41 | P.CRDCN ---
History of Present Illness Consult date: 03/22/22 History of present illness: HISTORY OF PRESENT ILLNESS: This is a 41 year old female with a past medical history significant for MTHFR, hypertension, and GERD. Patient follows with a Dr. Tijerina out of [place]. We have been asked to see the patient in consultation for TIA and borderline EF. Patient examined at the bedside. Patient presented to the hospital with a chief complaint of right sided facial drooping and numbness and tingling. She denied any chest pain or pressure. Denied any SOB. She does report having some palpitations for short period of time on Saturday. She also reports having headaches on and off for the past few days. She states her right-sided facial droop and numbness have all resolved. * EKG reveals sinus bradycardia with a heart rate in the 50s * Chest xray negative for acute process * CT angiogram head and neck: No significant neck or intracranial arterial abnormality identified. * Echocardiogram completed revealing ejection fraction 50-55% with no significant valvular abnormalities noted. * Repeat echocardiogram performed this morning is negative for PFO * Current home cardiac medications include lisinopril 20 mg daily and aspirin 81 mg daily REVIEW OF SYSTEMS: At the time of my exam: CONSTITUTIONAL: Denies fever or chills. HEENT: Denies blurred vision, vision changes, or eye pain. Denies hemoptysis CARDIOVASCULAR: Denies chest pain. Denies orthopnea. Denies PND. Denies p alpitations RESPIRATORY: Denies shortness of breath. GASTROINTESTINAL: Denies abdominal pain. Denies nausea or vomiting. HEMATOLOGIC: Denies bleeding disorders. GENITOURINARY: Denies any blood in urine. SKIN: Denies pruitis. Denies rash. PHYSICAL EXAM: VITAL SIGNS: Reviewed. GENERAL: Well-developed in no acute distress. HEENT: Head is normocephalic. Pupils are equal, round. Sclerae anicteric. Mucous membranes of the mouth are moist. Neck supple. No JVD or thyromegaly LUNGS: Respirations even and unlabored. Lungs essentially clear to auscultation bilaterally. HEART: Regular rate and rhythm. S1 and S2 heard. ABDOMEN: Soft. Nondistended. Nontender. EXTREMITIES: Normal range of motion. No clubbing or cyanosis. Peripheral pulses intact. No lower extremity edema NEUROLOGIC: Awake and alert. Oriented x 3. ASSESSMENT: Right sided numbness and tingling, resolved, rule out TIA Headaches Subdural hygromas Covid, December 2021 Hypertension MTHFR PLAN: Continue current cardiac medications Repeat echo obtained with no evidence of PFO Patient may be discharged home today and follow up with her primary corporate development analyst Nurse practitioner note has been reviewed by physician. Signing provider agrees with the documented findings, assessment, and plan of care. Past Medical History Past Medical History: Asthma, Blood Disorder, Eye Disorder, GERD/Reflux, Hyp ertension, Pneumonia Additional Past Medical History / Comment(s): MTHFR blood disorder, covid pneumonia 12/2021 hospitalized at [facility], bradycardia, colon rupture/surge ry, keratconus, History of Any Multi-Drug Resistant Organisms: None Reported Past Surgical History: Bowel Resection, Breast Surgery, Hysterectomy Additional Past Surgical History / Comment(s): Breast reduction, colon resectio n, R eye corneal transplant Past Anesthesia/Blood Transfusion Reactions: Postoperative Nausea & Vomiting (PONV) Additional Past Anesthesia/Blood Transfusion Reaction / Comment(s): "I was told my heart stopped during surgery once." Past Psychological History: Anxiety, Depression Additional Psychological History / Comment(s): Pt resides with her father. 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 She is independent. Smoking Status: Former smoker Past Alcohol Use History: Occasional Additional Past Alcohol Use History / Comment(s): Pt started smoking in 2001 and was an on and off smoker then quit smoking cigarettes completely December 2021 but will occasionally take a couple puffs off an E cigarette. Past Drug Use History: None Reported - Past Family History Father Family Medical History: Diabetes Mellitus, Hypertension Additional Family Medical History / Comment(s): Father is alive Mother Family Medical History: Pulmonary Embolus Additional Family Medical History / Comment(s): Mother of a PE Medications and Allergies Home Medications Medication Instructions Recorded Confirmed Type Albuterol Sulfate [Proair Hfa] 2 puff INHALATION RT-Q4H PRN 03/19/22 03/19/22 History Aspirin EC [Ecotrin Low Dose] 81 mg PO DAILY 03/19/22 03/19/22 History DULoxetine HCL [Cymbalta] 60 mg PO DAILY 03/19/22 03/19/22 History Omeprazole 40 mg PO DAILY 03/19/22 03/19/22 History lisinopriL [Zestril] 20 mg PO DAILY 03/19/22 03/19/22 History Atorvastatin [Lipitor] 20 mg PO HS 90 Days #90 tab 03/21/22 Rx Allergies Allergy/AdvReac Type Severity Reaction Status Date / Time cephalexin [From Keflex] AdvReac Nausea Verified 03/19/22 11:04 Physical Exam Vitals: Vital Signs Temp Pulse Pulse Resp BP Pulse Ox 03/22/22 04:00 97.9 F 71 18 120/72 96 03/22/22 02:00 76 18 03/22/22 00:00 97.8 F 76 18 133/75 95 03/21/22 20:00 97 F L 69 74 18 140/78 97 03/21/22 16:00 98.2 F 70 17 138/70 98 03/21/22 11:50 74 16 123/58 96 Intake and Output 03/21/22 03/22/22 03/22/22 22:59 06:59 14:59 Other: Voiding Method Toilet Toilet # Voids 1 1 Results 03/20/22 15:08 03/21/22 08:32 Cardiac Enzymes 03/21/22 Range/Units 08:32 AST 19 (14-36) U/L Comprehensive Metabolic Panel 03/21/22 Range/Units 08:32 Sodium 140 (137-145) mmol/L Potassium 3.9 (3.5-5.1) mmol/L Chloride 110 H (98-107) mmol/L Carbon Dioxide 26 (22-30) mmol/L BUN 7 (7-17) mg/dL Creatinine 0.58 (0.52-1.04) mg/dL Glucose 82 (74-99) mg/dL Calcium 8.6 (8.4-10.2) mg/dL AST 19 (14-36) U/L ALT 16 (4-34) U/L Alkaline Phosphatase 79 (38-126) U/L Total Protein 6.3 (6.3-8.2) g/dL Albumin 3.2 L (3.5-5.0) g/dL Current Medications Generic Name Dose Route Start Last Admin Trade Name Freq PRN Reason Stop Dose Admin Acetaminophen 1,000 mg 03/19/22 13:50 03/20/22 10:17 Acetaminophen Tab 500 Mg Tab PO 1,000 mg Q6HR PRN Administration Fever and/ or Pain Acetaminophen/Butalbital/Caffeine 1 each 03/20/22 12:02 03/22/22 05:55 Butalb/Apap/Caff 50-325-40mg Tab PO 1 each Q4HR PRN Administration Headache Albuterol Sulfate 2.5 mg 03/19/22 12:25 Albuterol Nebulized 2.5 Mg/3 Ml INHALATION RT-Q4H PRN Shortness Of Breath Aspirin 325 mg 03/22/22 09:00 Aspirin 325 Mg Tab PO DAILY JAKE Atorvastatin Calcium 20 mg 03/20/22 21:00 03/21/22 21:39 Atorvastatin 20 Mg Tab PO 20 mg HS JAKE Administration Duloxetine HCl 60 mg 03/20/22 09:00 03/21/22 08:06 Duloxetine Hcl 60 Mg Capsule.Dr PO 60 mg DAILY JAKE Administration Sodium Chloride 1,000 mls @ 100 mls/hr 03/19/22 11:00 03/22/22 01:01 Saline 0.9% IV Not Given .Q10H JAKE Lisinopril 20 mg 03/20/22 09:00 03/21/22 08:05 Lisinopril 20 Mg Tab PO 20 mg DAILY JAKE Administration Lorazepam 0.5 mg 03/19/22 21:29 03/22/22 05:56 Lorazepam 2 Mg/Ml Inj IV 0.5 mg Q6HR PRN Administration Anxiety Pantoprazole Sodium 40 mg 03/20/22 07:30 03/22/22 05:55 Pantoprazole 40 Mg Tablet PO 40 mg [id number] JAKE Administration Tramadol HCl 50 mg 03/20/22 22:00 03/21/22 21:39 Tramadol 50 Mg Tab PO 50 mg QID JAKE Administration Zolpidem Tartrate 5 mg 03/21/22 22:34 03/21/22 23:13 Zolpidem 5 Mg Tab PO 5 mg HS PRN Administration Insomnia Intake and Output 03/21/22 03/22/22 03/22/22 22:59 06:59 14:59 Other: Voiding Method Toilet Toilet # Voids 1 1 03/20/22 15:08 03/21/22 08:32
--- NOTE | 2022-03-22 15:24 | P.PN ---
Subjective Progress Note Date: 03/22/22 I am seeing the patient for the first time for neurological management during this admission. Please refer to Dr. Chappell's notes for further details. Currently the patient feels she is back to baseline from neurological perspective. She denies any further numbness of the face especially right side. She has pending MRV as requesed by Dr. Chappell. Objective - Vital Signs Vital signs: Vital Signs Temp 98 F 03/22/22 08:00 Pulse 78 03/22/22 08:00 Resp 16 03/22/22 08:00 BP 145/74 03/22/22 08:00 Pulse Ox 99 03/22/22 08:00 Intake & Output 03/21/22 03/22/22 03/22/22 18:59 06:59 18:59 Intake Total 480 Output Total 300 Balance 180 Intake: Oral 480 Output: Urine 300 Other: Voiding Method Toilet # Voids 1 - Exam GENERAL: The patient is lying in bed and is not in acute distress. NEUROLOGICAL: Higher mental function: The patient is awake, alert, oriented to self, place and time. Patient is following commands. No aphasia and no neglect. Cranial nerves: The pupils are round, equal and reactive to light and accommoda tion. Visual nobles are full to confrontation throughout. Extraocular movement is intact no nystagmus is noted. Facial sensation is normal to touch throughout. The facial strength is normal throughout. Tongue is midline and moved [id number] without any difficulty. No dysarthria is noted. Shoulder shrug is normal bilaterally. Motor: The strength is 5 over 5 throughout. Normal tone and bulk. Cerebellum: Normal finger to nose bilaterally. Sensation: Sensation is normal to touch throughout.. WORK-UP (beside what is stated in plan): Fasting a.m. lipid panel hemoglobin 185, LDL 107, HDL 51 triglycerides 131. Hemoglobin A1c 5.5, TSH 2.1. JHONY negative. - Labs CBC & Chem 7: 03/20/22 15:08 03/21/22 08:32 Assessment and Plan Assessment: * Questionable TIA manifesting with transient right facial and brachial numbness and tingling. Symptoms mostly lasted for 1-1/2 hours. No evidence of acute CVA on MRI brain. * Abnormal CT and MRI head, with evidence of subdural hygromas bilaterally, u nclear cause. No history of head trauma. * Intermittent fluctuating headaches since patient suffered from Covid in December 2021. The headaches have recently become worse over since just prior to arrival. * Reported history of positive MTHFR * Hypertension * Hyperlipidemia * Obesity Plan: * Patient has headache involving bifrontal region. No fever or chills. White cells are normal. No signs of infection. * MRI of the brain with and without contrast revealed 1 small nonspecific white matter lesion involving the subcortical frontal white matter on the right side. No evidence of an acute stroke. Continued presence of prominent CSF in the superior portion of the frontal parietal region, suggestive of subdural hygroma. Evidence of partial empty sella. Cerebellar tonsils are in close proximity to the verge of foramen magnum without herniation. No central hydrocephalus. * CTA of head and neck showed no significant stenosis. * Dr. Chappell discussed case with Dr. Horton, who felt patient would be safe to follow-up with a neurosurgeon outpatient. He referred him to , neurosurgeon. He reviewed her MRI and CT reports with Dr. Goff, and she wanted to see the patient as an outpatient within a week. No need for transfer as inpatient. * Patient states she has already made an appointment with the neurosurgeon Dr. Hutchinson for Saturday next week. She has an appointment with Dr. Lofton, a neurologist on 03/26/2022 at 2 PM for a second opinion. * We will check MRV of the head to rule out any venous sinus thrombosis. Patient does not take any hormones. She does have MTHFR. * 2-D echo revealed left ventricle is mildly dilated. Mild concentric LVH, left ventricle systolic function is low normal with an EF between 50-55%. Right ventricle was mildly enlarged. Bubble study was not performed because the images were not the best quality. Cardiology to see the patient for abnormal echo. * On aspirin dose 325 mg daily. I would avoid adding Plavix because of subdural hygromas. Continue Lipitor 20 mg daily. * Lyme titer pending. B12: 457. * Pending limited 2D echo. * PT, OT and ENTRY LEVEL ACCOUNT EXECUTIVE are consulted * Continue neuro checks * Will defer the rest of medical mangement to the primary team. The plan is discussed with the patient and her nurse. UPDATE: MR fees reported as no evident intracranial venous thrombosis. Anup Orozco M.D. Neuro-Hospitalist. Time with Patient: Less than 30
[2022-03-22] MEDS: ATORVASTATIN 20 MG TAB PO SCH (18:15)
[2022-03-22 18:26] VITALS: BP 140/75; PULSE 65; RESP 16; TEMP 98
[2022-03-24 11:12] LABS: Lyme IgG/IgM 0.07 Index
== END 2022-03-22 19:20 | disposition home or self-care (01) ==
LOC: EC 09:15 → INTOOBSV 10:57 → 3SCARD 10:57
PROVIDERS: ADMIT Family Medicine; ATTEND Family Medicine
DX: R29.818 Other symptoms and signs involving the nervous system (principal); G44.89 Other headache syndrome; I10 Essential (primary) hypertension; Z90.710 Acquired absence of both cervix and uterus; Z98.890 Other specified postprocedural states; Z94.1 Heart transplant status; Z90.49 Acquired absence of other specified parts of digestive tract; F41.9 Anxiety disorder, unspecified; F32.A Depression, unspecified; Z87.891 Personal history of nicotine dependence; Z86.16 Personal history of COVID-19; E78.5 Hyperlipidemia, unspecified; E66.9 Obesity, unspecified; Z68.42 Body mass index [BMI] 45.0-49.9, adult; G93.9 Disorder of brain, unspecified
CPT/HCPCS: 96376 ×3; 96361 ×2; 96375; 96374; 99285; 36415; 93005; 93308; 93306; 97161; 97165; 92523; 85379; 80061; 80053 ×2; 80048; 84443; 82607; 83540; 83550; 84484; 85025; 85027; 85610; 85730; 86618; 86038; 83036; 71046; 70496; 70450; 70498; 70544; 70553; G0378 ×4; J2060 ×4; J2765; A9585; Q9950; Q9967